=== PATIENT | female | born 1990 | race Caucasian/White ===

== ENCOUNTER 2016-11-09 15:19 | Emergency (ER) | payer OTHER ==
[~2016-11-09] VITALS: Ht 160 cm; Wt 59.0 kg
[2016-11-09 16:28] LABS: Basophils # (auto) 0 uL; Basophils % (auto) 0.1 % (0.0-2.0); Eosinophils # (auto) 0 uL; Eosinophils % (auto) 0.3 % (0.0-7.0); Hematocrit 36.7 % (36.0-46.0); Hemoglobin 12.7 g/dL (12.2-16.2); Lymphocytes # (auto) 1.1 uL; Lymphocytes % (auto) 8.7 % (10.0-50.0); Mean Corpuscular Hgb Conc. 34.5 g/dL (32.0-36.0); Mean Corpuscular Volume 92.8 fL (80.0-100.0); Monocytes # (auto) 0.4 uL; Monocytes % (auto) 3.3 % (0.0-12.0); Neutrophils # (auto) 11.5 uL; Neutrophils % (auto) 87.6 % (37.0-80.0); Platelet Count (auto) 329 10^3/uL (140-450); Red Cell Distribution Width 13.6 % (11.8-14.3); White Blood Cell 13.1 10^3/uL (4.4-10.8)
[2016-11-09 16:32] LABS: Albumin 3.7 g/dL (3.4-5.0); BUN/Creatinine Ratio 11.9; Bilirubin, Total 1.8 mg/dL (0.2-1.0); Calcium 8.7 mg/dL (8.5-10.1); Potassium 3.3 mmol/L (3.5-5.1)
[2016-11-09 20:25] VITALS: BP 105/61
== END 2016-11-09 20:27 | disposition home or self-care (01) ==
LOC: ER 15:19
DX: N39.0 Urinary tract infection, site not specified (principal); F17.210 Nicotine dependence, cigarettes, uncomplicated
CPT/HCPCS: 36415; 74176; 80053; 82150; 83690; 84702; 85025

== ENCOUNTER → 2017-06-20 | Outpatient (CLI) | payer MEDICAID ==
[2017-06-20 10:05] LABS: Basophils # (auto) 0.1 uL; Basophils % (auto) 0.5 % (0.0-2.0); Eosinophils # (auto) 0.3 uL; Eosinophils % (auto) 3.6 % (0.0-7.0); Hematocrit 34.8 % (36.0-46.0); Hemoglobin 11.8 g/dL (12.2-16.2); Lymphocytes # (auto) 2.2 uL; Lymphocytes % (auto) 23.8 % (10.0-50.0); Mean Corpuscular Hemoglobin 31.5 pg (28.0-32.0); Mean Corpuscular Hgb Conc. 34.1 g/dL (32.0-36.0); Mean Corpuscular Volume 92.6 fL (80.0-100.0); Monocytes # (auto) 0.5 uL; Monocytes % (auto) 5.3 % (0.0-12.0); Neutrophils # (auto) 6.3 uL; Neutrophils % (auto) 66.8 % (37.0-80.0); Platelet Count (auto) 304 10^3/uL (140-450); Red Blood Cells 3.76 10^6/uL (4.0-5.20); Red Cell Distribution Width 12.7 % (11.8-14.3); White Blood Cell 9.4 10^3/uL (4.4-10.8)
[2017-06-20 10:31] LABS: Alcohol, Urine < 3.0 mg/dL (0-5); Amphetamine Screen, Urine NEGATIVE (NEGATIVE); Barbiturate Scree,Urine NEGATIVE (NEGATIVE); Benzodiazephine Screen, Urine NEGATIVE (NEGATIVE); Cannabinoid Screen, Urine NEGATIVE (NEGATIVE); Cocaine Screen, Urine NEGATIVE (NEGATIVE); Opiate Scree,Urine NEGATIVE (NEGATIVE); Phencyclidine Screen, Urine NEGATIVE (NEGATIVE)
[2017-06-20 10:49] LABS: RUBELLA Positive
== END | disposition home or self-care (01) ==
LOC: LAB 09:14
PROVIDERS: ATTEND Obstetrics & Gynecology
DX: O99.810 Abnormal glucose complicating pregnancy (principal); Z3A.00 Weeks of gestation of pregnancy not specified
CPT/HCPCS: 36415; 80307; 82951; 84702; 85025; 86703; 86762; 86850; 86900; 86901; 87086; 87340; 87591